=== PATIENT | female | born 1970 | race Caucasian/White ===

== ENCOUNTER 2021-05-11 15:25 | Emergency (ER) | payer SELFPAY ==
[~2021-05-11] VITALS: Ht 165.1 cm; Wt 72.6 kg
[2021-05-11 15:53] VITALS: BP 98/73
[2021-05-11] MEDS ORDERED: IV NS 0.9% 1,000 ML IV ONE ×2 (16:30→17:30)
[2021-05-11] MEDS ORDERED: ACETAMINOPHEN ES 500 MG TABLET PO ONE (16:30)
[2021-05-11] MEDS ORDERED: ACETAMINOPHEN ES 500 MG TABLET ONE (16:39)
[2021-05-11 16:46] LABS: HEMOGLOBIN 13.2 g/dL (11.5-14.8)
[2021-05-11 16:49] LABS: BASOPHILS # (AUTO) 0.1 K/uL (0.0-0.2); BASOPHILS % (AUTO) 0.7 % (0.0-2.0); CREATININE 0.7 mg/dL (0.6-1.3); EOSINOPHILS % (AUTO) 1.7 % (0.0-6.0); HEMATOCRIT 39 % (33-45); LYMPHOCYTES # (AUTO) 1.6 K/uL (0.8-4.8); LYMPHOCYTES % (AUTO) 18.7 % (20.0-44.0); MEAN CORPUSCULAR HGB CONC 34 g/dl (31.0-36.0); MEAN CORPUSCULAR VOLUME 90 fL (82-100); MONOCYTES # (AUTO) 0.8 K/uL (0.1-1.30); MONOCYTES % (AUTO) 9.4 % (2.0-12.0); NEUTROPHILS # (AUTO) 5.9 K/uL (1.8-8.9); NEUTROPHILS % (AUTO) 69.5 % (43.0-81.0); PLATELET COUNT (AUTO) 312 K/uL (150-450); POTASSIUM 3.8 mmol/L (3.5-5.1); RED BLOOD CELL COUNT(AUTO) 4.32 MIL/uL (4.0-5.2); WHITE BLOOD COUNT (AUTO) 8.5 K/uL (4.3-11.0)
[2021-05-11 16:55] LABS: ALBUMIN 3.7 g/dL (3.4-5.0); BILIRUBIN,TOTAL 0.3 mg/dL (0.2-1.0); TOTAL PROTEIN, SERUM 7.4 g/dL (6.4-8.2)
--- NOTE | 2021-05-11 17:03 | NUR ---
PT C/O FLU LIKE SYMPTOMS. PT SEEN & EVAL'D BY DR. LUU. DENIES CP, SOB, DIZZINESS, N/V AT THIS TIME. PT REFUSED IV FLUIDS, ERMD AWARE. WILL CONT TO MONITOR.
--- NOTE | 2021-05-11 17:49 | NUR ---
Patient discharged to home in stable condition. Written and verbal after care instructions given. Patient verbalizes understanding of instruction.
== END 2021-05-11 17:50 | disposition home or self-care (01) ==
LOC: ER 15:29
DX: B34.9 Viral infection, unspecified (principal); R05 Cough; R50.9 Fever, unspecified; Z20.822 Contact with and (suspected) exposure to COVID-19; Z90.49 Acquired absence of other specified parts of digestive tract
CPT/HCPCS: 36415; 71045; 80053; 84145; 85025; 87804; 99284; C9803; U0003; J7030

== ENCOUNTER 2023-09-23 11:28 | Emergency (ER) | payer MEDICAID, OTHER ==
[~2023-09-23] VITALS: Ht 157.5 cm; Wt 59.9 kg
[2023-09-23] MEDS ORDERED: ACETAMINOPHEN ES 500 MG TABLET ONE (13:05)
[2023-09-23] MEDS ORDERED: ACETAMINOPHEN ES 500 MG TABLET PO ONE (13:05)
[2023-09-23 13:07] LABS: APPEARANCE,URINE CLEAR (CLEAR); BILIRUBIN,URINE NEGATIVE (NEGATIVE); BLOOD, URINE TRACE-INTA Ery/uL (NEGATIVE); COLOR,URINE YELLOW (YELLOW); KETONES,URINE NEGATIVE (NEGATIVE); LEUKOCYTE ESTERASE ,URINE NEGATIVE (NEGATIVE); NITRITE, URINE POSITIVE (NEGATIVE); PH,URINE 6.5 (5.0-8.0); PROTEIN,URINE NEGATIVE (NEGATIVE); UGLUCOSE NEGATIVE (NEGATIVE); UROBILINOGEN,URINE 0.2 EU/dL (0.2)
[2023-09-23 13:40] LABS: ADD URINE CULTURE YES; BACTERIA,URINE Few /HPF (None Seen); RBC,URINE 0-3 /HPF (0-2); SQUAMOUS EPITHELIAL CELL,UR Few /HPF (None Seen); WBC,URINE 0-2 /HPF (0-3)
[2023-09-23] MEDS ORDERED: IBUP-1957 PO (13:46)
[2023-09-23 14:03] VITALS: BP 131/81; TEMP 98.2; O2SAT 98
== END 2023-09-23 14:04 | disposition home or self-care (01) ==
LOC: ER 11:28
DX: B34.9 Viral infection, unspecified (principal); E03.9 Hypothyroidism, unspecified; Z90.49 Acquired absence of other specified parts of digestive tract
CPT/HCPCS: 71045-TC; 81001; 87086-TC